=== PATIENT | female | born 1930 | race Caucasian/White ===

== ENCOUNTER → 2017-01-24 | Outpatient (CLI) | payer OTHER ==
[~2017-01-24] MED LIST: APAP500 PO; ASPIRIN EC81 M1 PO; ASPIRIN325 PO; CIPROFLOXACIN500 M1 PO; COLACE 100 MG100 MG PO; DILTIAZEM 24HR180 MG PO; DILTIAZEM 24HR240 M1 PO; FLAGYL500 MG PO; FOSAMAX 70 MG T70 M1 PO; LIPITOR 10 MG10 M1 PO; MICARDIS HCT 81 EAC1 PO; MULTI-VITAMIN1 EAC5 PO; NITROSTAT0.4 MG SUBLING; PHOSLO667 MG PO; PREMARIN PO; PREMARIN0.625 MG PO; ZOFRAN4 MG PO
--- NOTE | ~2017-01-24 | 2DMMODE ---
[facility] [address] [place] [address] 2 D/M-MODE ECHOCARDIOGRAM Name: MICHELLE ALEJANDRO Room #: REG CL [facility]#: [id number] Admission: 01/24/17 Attend Phys: Jan Walters Discharge: Date of : [birth year] Date of Service: 01/24/17 1554 Report #: [id number] THIS REPORT FOR: //name// APPROVED REPORT Study performed: 01/24/2017 14:21:02 EXAM: Comprehensive 2D, Doppler, and color-flow Echocardiogram Patient Location: Out-Patient Status: routine BSA: 1.48 HR: 78 bpm BP: 93/53 mmHg Other Information Study Quality: Good Indications Dyspnea Chest Pain 2D Dimensions RVDd: 30.76 mm LVEF(%): 74.60 (>50%) IVSd: 9.13 (7-11mm) LVOT Diam: 19.10 (18-24mm) LVDd: 39.12 mm PWd: 8.80 (7-11mm) Ascending Ao: 25.57 (22-36mm) LVDs: 22.35 (25-40mm) Aortic Root: 27.75 mm Celaya's LVEF: 74.60 % Volumes Left Atrial Volume (Systole) Single Plane 4CH: 28.79 mL Single Plane 2CH: 41.43 mL LA ESV Index: 27.00 mL/m2 Aortic Valve AoV Peak Eulalio.: 1.79 m/s AO Peak Gr.: 12.88 mmHg LVOT Max P.40 mmHg LVOT Max V: 1.45 m/s HOWIE Vmax: 2.31 cm2 Mitral Valve E/A Ratio: 0.6 MV Decel. Time: 291.78 ms [facility] [address] [place] [address] 2 D/M-MODE ECHOCARDIOGRAM Name: MICHELLE ALEJANDRO GRACE Room #: [facility]#: [id number] Admission: 01/24/17 Attend Phys: Jan Walters Discharge: Date of : [birth year] Date of Service: 01/24/17 1554 Report #: [id number] MV E Max Eulalio.: 0.87 m/s MV A Eulalio.: 1.37 m/s MV PHT: 84.62 ms IVRT: 78.43 ms Pulmonary Valve PV Peak Eulalio.: 1.34 m/s PV Peak Gr.: 7.15 mmHg Pulmonary Vein P Vein S: 0.58 m/s P Vein A: 0.38 m/s P Vein D: 0.38 m/s P Vein A Dur.: 110.7 msec P Vein S/D Ratio: 1.53 Tricuspid Valve TR Peak Eulalio.: 3.15 m/s RAP Estimate: 5.00 mmHg TR Peak Gr.: 39.77 mmHg PA Pressure: 45.00 mmHg Left Ventricle The left ventricle is normal size. There is normal left ventricular wall thickness. The left ventricular systolic function is normal. The left ventricular ejection fraction is within the normal range. LVEF is 60-65%. Grade I - abnormal relaxation pattern. Right Ventricle The right ventricle is normal size. The right ventricular systolic function is normal. Atria The left atrium size is normal. The right atrium size is normal. Aortic Valve Aortic valve is calcified. Aortic valve leaflets are mildly thickened. Mild aortic regurgitation. There is no aortic valvular stenosis. Mitral Valve The mitral valve is normal in structure. Trace mitral regurgitation. No evidence of mitral valve stenosis. Tricuspid Valve The tricuspid valve is normal in structure. There is trace tricuspid regurgitation. The right atrial pressure is estimated at 5 mmHg. There is moderate pulmonary hypertension with an estimated PAP of 45 mmHg. [facility] [address] [place] [address] 2 D/M-MODE ECHOCARDIOGRAM Name: MICHELLE ALEJANDRO Room #: REG CL [facility]#: [id number] Admission: 01/24/17 Attend Phys: Jan Walters Discharge: Date of : [birth year] Date of Service: 01/24/17 1554 Report #: [id number] Pulmonic Valve The pulmonary valve is normal in structure. Trace pulmonic regurgitation. Great Vessels The aortic root is normal in size. The ascending aorta is normal in size. IVC is normal in size and collapses >50% with inspiration. Pericardium There is no pericardial effusion. <Conclusion> The left ventricle is normal size. The left ventricular systolic function is normal. Grade I - abnormal relaxation pattern. The right ventricle is normal size. The left atrium size is normal. There is no aortic valvular stenosis. Mild aortic regurgitation. Trace mitral regurgitation. There is moderate pulmonary hypertension with an estimated PAP of 45 mmHg. <ELECTRONICALLY SIGNED> By: Anuel Marshall MD 01/24/17 1554 1554 1554 Anuel Marshall MD /INF
== END ==
LOC: CV 14:00
DX: R06.00 Dyspnea, unspecified (principal); R07.9 Chest pain, unspecified

== ENCOUNTER → 2017-06-15 | Outpatient (CLI) | payer OTHER | LOC: RAD 11:34 | DX: R05 Cough (principal) ==